=== PATIENT | male | born 1970 | race Caucasian/White ===

== ENCOUNTER 2017-12-15 07:03 | Day surgery (SDC) | payer OTHER ==
[~2017-12-15] VITALS: Ht 167.6 cm; Wt 86.2 kg
[~2017-12-15 07:03] MED LIST: CEFAZOLIN SOD 1 GM/ ISO 50 ML PREMIX IV ONE
[2017-12-15] MEDS ORDERED: ROCURONIUM BROMIDE 10 MG/ML (ZEMURON) IV ONE (11:10)
[2017-12-15] MEDS ORDERED: LR 1,000 ML IV.SOLN IV ONE (11:10)
[2017-12-15] MEDS ORDERED: PROPOFOL 200MG/ 20ML VIAL (DIPRIVAN) IV ONE (11:10)
[2017-12-15] MEDS ORDERED: NEOSTIGMINE METHYLSULFATE 1 MG/ML, 10 ML VIAL IVP ONE (11:10)
[2017-12-15] MEDS ORDERED: SEVOFLURANE 15 MIN GAS INH ONE (11:10)
[2017-12-15] MEDS ORDERED: ONDANSETRON HCL 4 MG/2 ML VIAL IVP ONE (11:10)
[2017-12-15] MEDS ORDERED: NS 1000 ML IV.SOLN IV ONE (11:10)
[2017-12-15] MEDS ORDERED: MIDAZOLAM HCL 5 MG/5 ML VIAL IVP ONE (11:10)
[2017-12-15] MEDS ORDERED: fentaNYL CITRATE/PF 100 MCG/2 ML AMP IVP ONE (11:10)
[2017-12-15] MEDS ORDERED: GLYCOPYRROLATE 0.2 MG/ML VIAL IJ ONE (11:10)
[2017-12-15] MEDS ORDERED: IOHEXOL 50 ML IV ONE (11:14)
[2017-12-15] MEDS ORDERED: LR 1,000 ML IV SCH (11:53)
[2017-12-15] MEDS ORDERED: MORPHINE 4 MG/ML INJ. SYRINGE IVP PRN ×2 (12:00)
[2017-12-15] MEDS ORDERED: METOCLOPRAMIDE HCL 10 MG/2 ML VIAL IVP PRN (12:00)
[2017-12-15] MEDS: MORPHINE 4 MG/ML INJ. SYRINGE IVP PRN ×3 (12:20→12:45)
[2017-12-15] MEDS ORDERED: MORPHINE 4 MG/ML INJ. SYRINGE ONE ×2 (12:36→12:53)
[2017-12-15] MEDS ORDERED: HYDROcodone/ACETAMIN 5-325 MG TAB (NORCO/ VICODIN) ONE (13:36)
[2017-12-15 14:32] VITALS: BP_SYST 114
[2017-12-15] MEDS ORDERED: D5/0.45 NS 1,000 ML IV SCH (15:00)
[2017-12-15] MEDS ORDERED: HYDROmorphone 1 MG INJ. 1 MG/ML AMPUL IVP PRN (15:00)
[2017-12-15] MEDS ORDERED: HYDROcodone/ACETAMIN 5-325 MG TAB (NORCO/ VICODIN) PO PRN ×2 (15:00)
== END 2017-12-15 14:20 | disposition home or self-care (01) ==
LOC: SDS 07:03 → SMU 07:04 → SDS 14:20
PROVIDERS: ATTEND Colon & Rectal Surgery
DX: K80.12 Calculus of gallbladder with acute and chronic cholecystitis without obstruction (principal); K42.0 Umbilical hernia with obstruction, without gangrene; E78.5 Hyperlipidemia, unspecified; Z80.3 Family history of malignant neoplasm of breast; Z82.49 Family history of ischemic heart disease and other diseases of the circulatory system
CPT/HCPCS: 47563; 49587; 74300; 88304; C1727; C1758; J0690; J2250; J2270; J2405; J2704; J2710; J3010; J3490; J7030; J7120; Q9967